=== PATIENT | female | born 1990 | race Caucasian/White ===

== ENCOUNTER → 2017-04-08 | Outpatient (REF) | LOC: WSOH 14:13 | DX: Z02.89 Encounter for other administrative examinations (principal) ==

== ENCOUNTER 2017-12-31 03:09 | Emergency (ER) | payer SELFPAY ==
[~2017-12-31] VITALS: Ht 157.5 cm; Wt 77.3 kg
[2017-12-31 03:14] VITALS: TEMP 98.3
[2017-12-31 04:07] LABS: COLLECTION METHOD CLEAN CATCH
[2017-12-31 04:10] LABS: HEMATOCRIT 39.8 % (37.0-47.0); HEMOGLOBIN 13.3 g/dl (12.5-16.0); MEAN CELL VOLUME 92 fl (80.0-100.0); MEAN CORPUSCULAR HEMOGLOBIN 31 pg (27.0-31.0); MEAN CORPUSCULAR HGB CONC 33 g/dl (33.0-37.0); MEAN PLATELET VOLUME 10.5 fl (7.4-10.4); PLATELET COUNT 315 K/mm3 (130-400); RED BLOOD COUNT 4.34 M/mm3 (4.10-5.30); REDCELL DISTRIBUTION WIDTH-CV 12.4 % (11.5-14.5)
[2017-12-31 04:20] LABS: ALBUMIN 4.3 gm/dL (3.5-5.0); BILIRUBIN,TOTAL 0.4 mg/dL (0.0-1.0); CALCIUM 9.4 mg/dL (8.4-10.2); CREATININE, serum 0.92 mg/dL (0.52-1.25); POTASSIUM 3.8 mmol/L (3.4-5.0); TOTAL PROTEIN 8.7 gm/dL (6.4-8.2)
[2017-12-31 04:23] LABS: MUCOUS Present /lpf; PH 5 (5-8); URINE APPEARANCE Hazy; URINE BACTERIA None Seen /hpf; URINE BILIRUBIN Negative (NEGATIVE); URINE BLOOD 1+ (NEGATIVE); URINE COLOR Yellow; URINE GLUCOSE Negative (NEGATIVE); URINE KETONE Negative (NEGATIVE); URINE LEUKOCYTE ESTERASE 1+ (NEGATIVE); URINE NITRATE Negative (NEGATIVE); URINE PROTEIN(semi-quant) Negative (NEGATIVE); URINE UROBILINOGEN Negative (NEGATIVE)
[2017-12-31 04:33] LABS: EOSINOPHIL 1 % (0-4); NEUTROPHILS 39 % (42.0-75.2)
[2017-12-31 04:34] LABS: LYMPHOCYTE 54 % (20.0-51.0); PLATELET ESTIMATE NORMAL (NORMAL)
[2017-12-31] MEDS ORDERED: VOLTAREN 75 DR75 MG PO (04:59)
[2017-12-31] MEDS ORDERED: NORCO 325 MG-51 TAB PO (04:59)
[2017-12-31] MEDS ORDERED: ZOFRAN ODT4 MG PO (04:59)
[2017-12-31 05:45] VITALS: BP 134/84; PULSE 97
== END 2017-12-31 05:45 | disposition home or self-care (01) ==
LOC: COL.ER 03:09
PROVIDERS: Emergency Medicine
DX: N20.2 Calculus of kidney with calculus of ureter (principal)
CPT/HCPCS: J2765; J3010; J7030; Q9967